=== PATIENT | female | born 1975 | race Caucasian/White ===

== ENCOUNTER 2018-12-19 22:41 | Emergency (ER) | payer MEDICAID ==
[~2018-12-19] VITALS: Ht 152.4 cm; Wt 63.3 kg
[~2018-12-19 22:41] MED LIST: ACET1TAB40 PO; CEPH-443 PO; FAMO40TA5 PO; MAG-19 PO; OMEP20CA17 PO; ONDA4TAB14 PO
[2018-12-19 22:45] VITALS: Ht 152.4 cm; Wt 63.3 kg
[2018-12-19] MEDS ORDERED: SOD CHLORIDE 0.9% 1,000 ML IV STA (22:56)
[2018-12-19] MEDS ORDERED: ONDANSETRON 4 MG INJ IV ONE (22:58)
[2018-12-19] MEDS ORDERED: KETOROLAC 15 MG INJ IV ONE (22:59)
[2018-12-20] MEDS ORDERED: SOD CHLORIDE 0.9% 100 ML ONE (00:26)
[2018-12-20] MEDS ORDERED: IOHEXOL 300MG/ML 150 ML BTL ONE (00:26)
[2018-12-20] MEDS ORDERED: LIDOCAINE 2% VISC 10 ML CUP PO ONE (00:30)
[2018-12-20] MEDS ORDERED: AL HYDROX/MG HYDROX/SIMETH 30 ML CUP PO ONE (00:30)
[2018-12-20 01:04] VITALS: BP 108/83; PULSE 55; RESP 16
== END 2018-12-20 01:06 | disposition home or self-care (01) ==
LOC: E/R 22:41
DX: R10.33 Periumbilical pain (principal); R11.2 Nausea with vomiting, unspecified
CPT/HCPCS: 36415; 74177; 80053; 83690; 84703; 85025; 96374; 96375; J1885; J2405; J7030; Q9967; Z7502; Z7610